=== PATIENT | male | born 1965 | race Caucasian/White ===

== ENCOUNTER 2021-06-30 13:31 | Inpatient (IN) | payer SELFPAY ==
[~2021-06-30] VITALS: Ht 182.9 cm; Wt 65.8 kg
[2021-06-30] MEDS ORDERED: SODIUM CHLORIDE 0.9% 1000ML 1,000 ML IV STA (13:53)
[2021-06-30] MEDS: SODIUM CHLORIDE 0.9% 1000ML 1,000 ML IV STA (14:10)
[2021-06-30] MEDS ORDERED: PROPOFOL IV EMULSION 10 MG/ML 20 ML VIAL ONE (14:13)
[2021-06-30] MEDS ORDERED: SEVOFLURANE INHAL SOLN 250 ML PEN BTL ONE (14:13)
[2021-06-30] MEDS ORDERED: LIDOCAINE HCL 2% LOCAL INJ 5 ML SDV VIAL INJ ONE (14:13)
[2021-06-30] MEDS ORDERED: POVIDONE IODINE 0.05% 0.05 % ML PO ONE (14:13)
[2021-06-30] MEDS ORDERED: ONDANSETRON HCL INJ 2MG/ML 2ML 2 MG/ML VIAL ONE (14:13)
[2021-06-30] MEDS ORDERED: PIPERACILLIN/TAZOBACTAM 3.375 GM in SODIUM CHLORIDE 0.9% 50ML 50 ML IV ONE (16:00)
[2021-06-30] MEDS ORDERED: INSULIN REGULAR, HUMAN 100 UNIT/1 ML IV ONE (16:00)
[2021-06-30] MEDS ORDERED: Vancomycin IV 1 GM in SODIUM CHLORIDE 0.9% 250ML 250 ML IV ONE (16:30)
[2021-06-30 19:56] VITALS: BP 165/86
[2021-06-30 20:29] VITALS: BP 165/86
[2021-06-30 21:00] VITALS: BP 165/86
[2021-06-30] MEDS: INSULIN LISPRO 100 UNIT/1 ML 3ML VIAL SQ SCH (21:37)
[2021-06-30] MEDS: PIPERACILLIN/TAZOBACTAM 3.375 GM in SODIUM CHLORIDE 0.9% 50ML 50 ML IV SCH (21:38)
[2021-07-01] VITALS (7 sets, daily range): BP systolic 124–141; BP diastolic 75–84
[2021-07-01] MEDS: MORPHINE SULFATE INJ 4 MG/ML INJ 1ML IV PRN ×3 (00:44→19:44)
[2021-07-01] MEDS: PIPERACILLIN/TAZOBACTAM 3.375 GM in SODIUM CHLORIDE 0.9% 50ML 50 ML IV SCH ×4 (04:10→22:08)
[2021-07-01 06:31] LABS: BASOPHILS # (AUTO) 0.1 (0.0-0.1); BASOPHILS % 0.3 % (0.0-1.0); EOSINOPHILS # (AUTO) 0.1 (0.0-0.4); EOSINOPHILS % 0.5 % (0.0-6.0); HEMATOCRIT 24.6 % (38.2-49.6); LYMPHOCYTES # (AUTO) 2.2 (1.0-3.2); LYMPHOCYTES % 12.1 % (18.0-39.1); MEAN CORPUSCULAR HEMOGLOBIN 30.2 pg (28-32); MEAN CORPUSCULAR HGB CONC 32.5 g/dL (31-35); MEAN CORPUSCULAR VOLUME 92.8 fL (81-99); MONOCYTES # (AUTO) 1.3 (0.2-0.8); NEUTROPHILS # (AUTO) 14.3 (2.1-6.9); NEUTROPHILS % 78.3 % (38.7-80.0); PLATELET COUNT 533 x10e3/uL (140-360); RED BLOOD COUNT 2.65 x10e6/uL (4.3-5.7); RED CELL DISTRIBUTION WIDTH 12.5 % (11.7-14.4)
[2021-07-01 07:01] LABS: ALBUMIN/GLOBULIN RATIO 0.5 (0.8-2.0); ANION GAP 13.1 mmol/L (8-16); CALCIUM 8.5 mg/dL (8.4-10.2); CREATININE, SERUM 0.84 mg/dL (0.72-1.25); POTASSIUM 4.1 mmol/L (3.5-5.1)
[2021-07-01] MEDS: SODIUM CHLORIDE 0.9% 1000ML 1,000 ML IV STA (09:09)
[2021-07-01] MEDS: INSULIN LISPRO 100 UNIT/1 ML 3ML VIAL SQ SCH ×4 (09:12→20:19)
[2021-07-01 10:29] LABS: CHOL/HDL RATIO 4.3 (3.9-4.7)
[2021-07-01] MEDS: ASPIRIN 325 MG TAB PO SCH (10:47)
[2021-07-01] MEDS: INSULIN REGULAR, HUMAN 100 UNIT/1 ML SQ SCH ×2 (12:39→17:00)
[2021-07-01] MEDS: CLINDAMYCIN 300MG 50 ML IV SCH ×2 (15:19→23:05)
[2021-07-01] MEDS: GLIMEPIRIDE 2 MG TAB PO SCH (17:02)
[2021-07-01] MEDS: METFORMIN HCL 500 MG TAB PO SCH (17:02)
[2021-07-01] MEDS: PRAVASTATIN 20 MG TAB PO SCH (20:19)
[2021-07-02] VITALS (9 sets, daily range): BP systolic 101–135; BP diastolic 66–83
[2021-07-02] MEDS: MORPHINE SULFATE INJ 4 MG/ML INJ 1ML IV PRN ×3 (04:05→21:12)
[2021-07-02] MEDS: PIPERACILLIN/TAZOBACTAM 3.375 GM in SODIUM CHLORIDE 0.9% 50ML 50 ML IV SCH ×4 (04:05→22:11)
[2021-07-02 05:40] LABS: BASOPHILS # (AUTO) 0.1 (0.0-0.1); BASOPHILS % 0.4 % (0.0-1.0); EOSINOPHILS # (AUTO) 0.1 (0.0-0.4); EOSINOPHILS % 0.6 % (0.0-6.0); HEMATOCRIT 25.5 % (38.2-49.6); HEMOGLOBIN 8.3 g/dL (14.0-18.0); LYMPHOCYTES % 10.6 % (18.0-39.1); MEAN CORPUSCULAR HEMOGLOBIN 30.4 pg (28-32); MEAN CORPUSCULAR HGB CONC 32.5 g/dL (31-35); MEAN CORPUSCULAR VOLUME 93.4 fL (81-99); MONOCYTES # (AUTO) 1.3 (0.2-0.8); MONOCYTES % 6.9 % (4.4-11.3); NEUTROPHILS % 80.1 % (38.7-80.0); PLATELET COUNT 516 x10e3/uL (140-360); RED BLOOD COUNT 2.73 x10e6/uL (4.3-5.7); RED CELL DISTRIBUTION WIDTH 12.6 % (11.7-14.4)
[2021-07-02 05:59] LABS: ANION GAP 11.7 mmol/L (8-16); CALCIUM 8.7 mg/dL (8.4-10.2); CREATININE, SERUM 0.97 mg/dL (0.72-1.25); POTASSIUM 3.7 mmol/L (3.5-5.1)
[2021-07-02] MEDS: CLINDAMYCIN 300MG 50 ML IV SCH ×3 (06:46→23:35)
[2021-07-02] MEDS: GLIMEPIRIDE 2 MG TAB PO SCH ×2 (07:59→16:29)
[2021-07-02] MEDS: METFORMIN HCL 500 MG TAB PO SCH ×2 (07:59→16:29)
[2021-07-02] MEDS: ASPIRIN 325 MG TAB PO SCH (07:59)
[2021-07-02] MEDS: INSULIN REGULAR, HUMAN 100 UNIT/1 ML SQ SCH ×3 (08:23→16:29)
[2021-07-02] MEDS: INSULIN LISPRO 100 UNIT/1 ML 3ML VIAL SQ SCH ×4 (08:23→21:10)
[2021-07-02] MEDS ORDERED: SEVOFLURANE INHAL SOLN 250 ML PEN BTL ONE (13:24)
[2021-07-02] MEDS ORDERED: POVIDONE IODINE 0.05% 0.05 % ML PO ONE (13:24)
[2021-07-02] MEDS ORDERED: ONDANSETRON HCL INJ 2MG/ML 2ML 2 MG/ML VIAL ONE (13:24)
[2021-07-02] MEDS ORDERED: LIDOCAINE HCL 2% LOCAL INJ 5 ML SDV VIAL INJ ONE (13:24)
[2021-07-02] MEDS ORDERED: PHENYLEPHRINE HCL 1% 10 MG/ML VIAL ONE (13:24)
[2021-07-02] MEDS ORDERED: PROPOFOL IV EMULSION 10 MG/ML 20 ML VIAL ONE (13:24)
[2021-07-02] MEDS ORDERED: FENTANYL CITRATE/PF 100MCG/2 ML INJ ONE (14:35)
[2021-07-02] MEDS ORDERED: MEPERIDINE HCL INJ 25 MG/ML VIAL ONE (14:36)
[2021-07-02] MEDS: SODIUM CHLORIDE 0.9% 1000ML 1,000 ML IV SCH (16:04)
[2021-07-02] MEDS ORDERED: SODIUM CHLORIDE 0.9% 250ML 250 ML IV ONE (18:30)
[2021-07-02] MEDS ORDERED: FUROSEMIDE INJ 10 MG/ML 2 ML VIAL IV PRN (18:30)
[2021-07-02 19:01] LABS: HEMOGLOBIN 7.2 g/dL (14.0-18.0)
[2021-07-02] MEDS: HYDROCODONE/APAP 7.5MG-325MG 1 EA TAB PO PRN (19:57)
[2021-07-02] MEDS: PRAVASTATIN 20 MG TAB PO SCH (21:10)
[2021-07-03] VITALS (9 sets, daily range): BP systolic 113–171; BP diastolic 72–93
[2021-07-03] MEDS ORDERED: SODIUM CHLORIDE 0.9% 250ML 250 ML ONE ×2 (00:18→04:23)
[2021-07-03] MEDS: HYDROCODONE/APAP 7.5MG-325MG 1 EA TAB PO PRN ×2 (01:08→14:07)
[2021-07-03] MEDS: SODIUM CHLORIDE 0.9% 1000ML 1,000 ML IV SCH ×3 (01:51→20:33)
[2021-07-03] MEDS: MORPHINE SULFATE INJ 4 MG/ML INJ 1ML IV PRN ×5 (02:12→20:44)
[2021-07-03] MEDS: PIPERACILLIN/TAZOBACTAM 3.375 GM in SODIUM CHLORIDE 0.9% 50ML 50 ML IV SCH ×4 (03:26→21:42)
[2021-07-03 07:35] LABS: BASOPHILS # (AUTO) 0.1 (0.0-0.1); BASOPHILS % 0.5 % (0.0-1.0); EOSINOPHILS # (AUTO) 0.1 (0.0-0.4); EOSINOPHILS % 0.8 % (0.0-6.0); HEMATOCRIT 26.7 % (38.2-49.6); HEMOGLOBIN 8.8 g/dL (14.0-18.0); LYMPHOCYTES # (AUTO) 1.7 (1.0-3.2); LYMPHOCYTES % 12.5 % (18.0-39.1); MEAN CORPUSCULAR HEMOGLOBIN 29.8 pg (28-32); MEAN CORPUSCULAR VOLUME 90.5 fL (81-99); MONOCYTES % 7.3 % (4.4-11.3); NEUTROPHILS # (AUTO) 10.3 (2.1-6.9); NEUTROPHILS % 77.8 % (38.7-80.0); PLATELET COUNT 407 x10e3/uL (140-360); RED BLOOD COUNT 2.95 x10e6/uL (4.3-5.7)
[2021-07-03 07:56] LABS: ANION GAP 12.2 mmol/L (8-16); CALCIUM 7.8 mg/dL (8.4-10.2); CREATININE, SERUM 0.93 mg/dL (0.72-1.25); POTASSIUM 4.2 mmol/L (3.5-5.1)
[2021-07-03] MEDS: METFORMIN HCL 500 MG TAB PO SCH ×2 (08:33→15:02)
[2021-07-03] MEDS: GLIMEPIRIDE 2 MG TAB PO SCH ×2 (08:33→15:02)
[2021-07-03] MEDS: CLINDAMYCIN 300MG 50 ML IV SCH ×3 (08:34→23:51)
[2021-07-03] MEDS: INSULIN LISPRO 100 UNIT/1 ML 3ML VIAL SQ SCH ×4 (08:38→20:32)
[2021-07-03] MEDS: INSULIN REGULAR, HUMAN 100 UNIT/1 ML SQ SCH ×3 (08:38→15:02)
[2021-07-03] MEDS: DEXTROSE 50% SYRINGE 50 ML IV PRN (15:04)
[2021-07-03] MEDS: PRAVASTATIN 20 MG TAB PO SCH (20:33)
[2021-07-04] VITALS (9 sets, daily range): BP systolic 135–159; BP diastolic 81–91
[2021-07-04] MEDS: PIPERACILLIN/TAZOBACTAM 3.375 GM in SODIUM CHLORIDE 0.9% 50ML 50 ML IV SCH ×5 (03:46→22:48)
[2021-07-04] MEDS: MORPHINE SULFATE INJ 4 MG/ML INJ 1ML IV PRN ×2 (03:52→09:15)
[2021-07-04] MEDS: SODIUM CHLORIDE 0.9% 1000ML 1,000 ML IV SCH ×2 (06:26→17:39)
[2021-07-04 06:44] LABS: BASOPHILS % 0.3 % (0.0-1.0); EOSINOPHILS # (AUTO) 0.1 (0.0-0.4); EOSINOPHILS % 1.1 % (0.0-6.0); HEMATOCRIT 25.9 % (38.2-49.6); HEMOGLOBIN 8.5 g/dL (14.0-18.0); LYMPHOCYTES # (AUTO) 1.9 (1.0-3.2); LYMPHOCYTES % 14.6 % (18.0-39.1); MEAN CORPUSCULAR HEMOGLOBIN 29.8 pg (28-32); MEAN CORPUSCULAR HGB CONC 32.8 g/dL (31-35); MEAN CORPUSCULAR VOLUME 90.9 fL (81-99); MONOCYTES # (AUTO) 0.9 (0.2-0.8); MONOCYTES % 6.5 % (4.4-11.3); NEUTROPHILS # (AUTO) 10.1 (2.1-6.9); NEUTROPHILS % 76.5 % (38.7-80.0); PLATELET COUNT 399 x10e3/uL (140-360); RED BLOOD COUNT 2.85 x10e6/uL (4.3-5.7); RED CELL DISTRIBUTION WIDTH 13.9 % (11.7-14.4)
[2021-07-04 07:16] LABS: ANION GAP 11.8 mmol/L (8-16); CREATININE, SERUM 0.89 mg/dL (0.72-1.25); POTASSIUM 3.8 mmol/L (3.5-5.1)
[2021-07-04] MEDS: INSULIN REGULAR, HUMAN 100 UNIT/1 ML SQ SCH ×3 (07:30→17:51)
[2021-07-04] MEDS: INSULIN LISPRO 100 UNIT/1 ML 3ML VIAL SQ SCH ×4 (07:30→21:00)
[2021-07-04] MEDS: METFORMIN HCL 500 MG TAB PO SCH ×2 (07:58→17:39)
[2021-07-04] MEDS: GLIMEPIRIDE 2 MG TAB PO SCH ×2 (07:59→17:39)
[2021-07-04] MEDS: CLINDAMYCIN 300MG 50 ML IV SCH (09:12)
[2021-07-04] MEDS ORDERED: ONDANSETRON HCL INJ 2MG/ML 2ML 2 MG/ML VIAL IV PRN (16:00)
[2021-07-04] MEDS ORDERED: KETOROLAC TROMETHAMINE 30 MG/ML VIAL IV PRN (16:00)
[2021-07-04] MEDS: HYDROMORPHONE 1MG/1ML INJ IV PRN ×2 (16:03→20:50)
[2021-07-04] MEDS ORDERED: FENTANYL CITRATE/PF 100MCG/2 ML INJ ONE (16:22)
[2021-07-04] MEDS ORDERED: KETOROLAC TROMETHAMINE 30 MG/ML VIAL ONE (16:43)
[2021-07-04] MEDS: PRAVASTATIN 20 MG TAB PO SCH (20:50)
[2021-07-05] VITALS (9 sets, daily range): BP systolic 121–168; BP diastolic 71–97
[2021-07-05] MEDS: HYDROMORPHONE 1MG/1ML INJ IV PRN ×5 (01:02→21:03)
[2021-07-05] MEDS: SODIUM CHLORIDE 0.9% 1000ML 1,000 ML IV SCH (02:13)
[2021-07-05] MEDS: PIPERACILLIN/TAZOBACTAM 3.375 GM in SODIUM CHLORIDE 0.9% 50ML 50 ML IV SCH ×4 (04:17→21:30)
[2021-07-05] MEDS: HYDROCODONE/APAP 7.5MG-325MG 1 EA TAB PO PRN (05:05)
[2021-07-05] MEDS: GLIMEPIRIDE 2 MG TAB PO SCH ×2 (08:44→15:23)
[2021-07-05] MEDS: METFORMIN HCL 500 MG TAB PO SCH ×2 (08:44→15:23)
[2021-07-05 08:49] LABS: BASOPHILS # (AUTO) 0.1 (0.0-0.1); BASOPHILS % 0.5 % (0.0-1.0); EOSINOPHILS # (AUTO) 0.1 (0.0-0.4); EOSINOPHILS % 0.8 % (0.0-6.0); HEMATOCRIT 24.1 % (38.2-49.6); HEMOGLOBIN 7.8 g/dL (14.0-18.0); LYMPHOCYTES # (AUTO) 1.4 (1.0-3.2); LYMPHOCYTES % 11.2 % (18.0-39.1); MEAN CORPUSCULAR HEMOGLOBIN 29.7 pg (28-32); MEAN CORPUSCULAR HGB CONC 32.4 g/dL (31-35); MEAN CORPUSCULAR VOLUME 91.6 fL (81-99); MONOCYTES # (AUTO) 0.7 (0.2-0.8); MONOCYTES % 5.7 % (4.4-11.3); NEUTROPHILS # (AUTO) 9.9 (2.1-6.9); PLATELET COUNT 431 x10e3/uL (140-360); RED BLOOD COUNT 2.63 x10e6/uL (4.3-5.7); RED CELL DISTRIBUTION WIDTH 13.5 % (11.7-14.4)
[2021-07-05] MEDS: INSULIN LISPRO 100 UNIT/1 ML 3ML VIAL SQ SCH ×4 (08:59→21:10)
[2021-07-05] MEDS: INSULIN REGULAR, HUMAN 100 UNIT/1 ML SQ SCH ×3 (09:00→15:23)
[2021-07-05 09:19] LABS: ANION GAP 9.9 mmol/L (8-16); CALCIUM 7.8 mg/dL (8.4-10.2); CREATININE, SERUM 0.78 mg/dL (0.72-1.25); POTASSIUM 3.9 mmol/L (3.5-5.1)
[2021-07-05] MEDS: DEXTROSE 50% SYRINGE 50 ML IV PRN (15:24)
[2021-07-05] MEDS: PRAVASTATIN 20 MG TAB PO SCH (21:09)
[2021-07-06] VITALS (8 sets, daily range): BP systolic 98–156; BP diastolic 64–96
[2021-07-06] MEDS: HYDROMORPHONE 1MG/1ML INJ IV PRN ×6 (00:54→21:14)
[2021-07-06] MEDS: HYDROCODONE/APAP 7.5MG-325MG 1 EA TAB PO PRN (02:44)
[2021-07-06] MEDS: PIPERACILLIN/TAZOBACTAM 3.375 GM in SODIUM CHLORIDE 0.9% 50ML 50 ML IV SCH ×4 (03:21→22:08)
[2021-07-06 06:29] LABS: BASOPHILS # (AUTO) 0.1 (0.0-0.1); BASOPHILS % 0.6 % (0.0-1.0); EOSINOPHILS # (AUTO) 0.1 (0.0-0.4); EOSINOPHILS % 1.3 % (0.0-6.0); HEMATOCRIT 23.3 % (38.2-49.6); HEMOGLOBIN 7.6 g/dL (14.0-18.0); LYMPHOCYTES # (AUTO) 1.4 (1.0-3.2); LYMPHOCYTES % 15.9 % (18.0-39.1); MEAN CORPUSCULAR HEMOGLOBIN 29.7 pg (28-32); MEAN CORPUSCULAR HGB CONC 32.6 g/dL (31-35); MONOCYTES # (AUTO) 0.8 (0.2-0.8); MONOCYTES % 8.4 % (4.4-11.3); NEUTROPHILS # (AUTO) 6.6 (2.1-6.9); NEUTROPHILS % 73.2 % (38.7-80.0); PLATELET COUNT 445 x10e3/uL (140-360); RED BLOOD COUNT 2.56 x10e6/uL (4.3-5.7); RED CELL DISTRIBUTION WIDTH 13.1 % (11.7-14.4)
[2021-07-06 06:44] LABS: ANION GAP 12.9 mmol/L (8-16); CALCIUM 7.8 mg/dL (8.4-10.2); CREATININE, SERUM 0.94 mg/dL (0.72-1.25); POTASSIUM 3.9 mmol/L (3.5-5.1)
[2021-07-06] MEDS: INSULIN LISPRO 100 UNIT/1 ML 3ML VIAL SQ SCH ×4 (08:50→21:25)
[2021-07-06] MEDS: PRAVASTATIN 20 MG TAB PO SCH (21:17)
[2021-07-07] VITALS (8 sets, daily range): BP systolic 120–145; BP diastolic 73–90
[2021-07-07] MEDS: HYDROMORPHONE 1MG/1ML INJ IV PRN ×6 (00:48→21:05)
[2021-07-07] MEDS: PIPERACILLIN/TAZOBACTAM 3.375 GM in SODIUM CHLORIDE 0.9% 50ML 50 ML IV SCH ×3 (03:15→17:11)
[2021-07-07 05:39] LABS: BASOPHILS # (AUTO) 0.1 (0.0-0.1); BASOPHILS % 0.6 % (0.0-1.0); EOSINOPHILS # (AUTO) 0.2 (0.0-0.4); EOSINOPHILS % 1.9 % (0.0-6.0); HEMATOCRIT 24.1 % (38.2-49.6); HEMOGLOBIN 7.9 g/dL (14.0-18.0); LYMPHOCYTES % 20.8 % (18.0-39.1); MEAN CORPUSCULAR HEMOGLOBIN 29.4 pg (28-32); MEAN CORPUSCULAR HGB CONC 32.8 g/dL (31-35); MEAN CORPUSCULAR VOLUME 89.6 fL (81-99); MONOCYTES # (AUTO) 0.7 (0.2-0.8); MONOCYTES % 7.4 % (4.4-11.3); NEUTROPHILS # (AUTO) 6.6 (2.1-6.9); NEUTROPHILS % 68.9 % (38.7-80.0); PLATELET COUNT 449 x10e3/uL (140-360); RED BLOOD COUNT 2.69 x10e6/uL (4.3-5.7); RED CELL DISTRIBUTION WIDTH 13.1 % (11.7-14.4)
[2021-07-07 06:01] LABS: ANION GAP 12.2 mmol/L (8-16); CALCIUM 8.3 mg/dL (8.4-10.2); CREATININE, SERUM 0.83 mg/dL (0.72-1.25); POTASSIUM 4.2 mmol/L (3.5-5.1)
[2021-07-07] MEDS: INSULIN LISPRO 100 UNIT/1 ML 3ML VIAL SQ SCH ×4 (11:11→21:04)
[2021-07-07] MEDS: PRAVASTATIN 20 MG TAB PO SCH (21:05)
[2021-07-07] MEDS: HYDROCODONE/APAP 7.5MG-325MG 1 EA TAB PO PRN (23:31)
[2021-07-08] VITALS (8 sets, daily range): BP systolic 106–138; BP diastolic 70–86
[2021-07-08] MEDS: PIPERACILLIN/TAZOBACTAM 3.375 GM in SODIUM CHLORIDE 0.9% 50ML 50 ML IV SCH ×4 (00:03→16:29)
[2021-07-08] MEDS: HYDROMORPHONE 1MG/1ML INJ IV PRN ×4 (02:11→18:10)
[2021-07-08] MEDS: HYDROCODONE/APAP 7.5MG-325MG 1 EA TAB PO PRN ×4 (04:18→21:12)
[2021-07-08 05:41] LABS: BASOPHILS # (AUTO) 0.1 (0.0-0.1); BASOPHILS % 0.7 % (0.0-1.0); EOSINOPHILS # (AUTO) 0.2 (0.0-0.4); EOSINOPHILS % 2.8 % (0.0-6.0); HEMATOCRIT 24.7 % (38.2-49.6); HEMOGLOBIN 8.1 g/dL (14.0-18.0); LYMPHOCYTES # (AUTO) 1.8 (1.0-3.2); LYMPHOCYTES % 25.4 % (18.0-39.1); MEAN CORPUSCULAR HEMOGLOBIN 29.6 pg (28-32); MEAN CORPUSCULAR HGB CONC 32.8 g/dL (31-35); MEAN CORPUSCULAR VOLUME 90.1 fL (81-99); MONOCYTES # (AUTO) 0.6 (0.2-0.8); MONOCYTES % 7.8 % (4.4-11.3); NEUTROPHILS # (AUTO) 4.4 (2.1-6.9); NEUTROPHILS % 62.9 % (38.7-80.0); PLATELET COUNT 409 x10e3/uL (140-360); RED BLOOD COUNT 2.74 x10e6/uL (4.3-5.7); RED CELL DISTRIBUTION WIDTH 13.1 % (11.7-14.4)
[2021-07-08 05:57] LABS: ANION GAP 12.2 mmol/L (8-16); CALCIUM 8.3 mg/dL (8.4-10.2); CREATININE, SERUM 0.83 mg/dL (0.72-1.25); POTASSIUM 4.2 mmol/L (3.5-5.1)
[2021-07-08] MEDS: INSULIN LISPRO 100 UNIT/1 ML 3ML VIAL SQ SCH ×4 (07:52→21:13)
[2021-07-08] MEDS ORDERED: SODIUM CHLORIDE 0.9% 50ML 50 ML ONE (11:00)
[2021-07-08] MEDS: PRAVASTATIN 20 MG TAB PO SCH (21:12)
[2021-07-09] VITALS (8 sets, daily range): BP systolic 111–135; BP diastolic 66–91
[2021-07-09] MEDS: HYDROMORPHONE 1MG/1ML INJ IV PRN ×2 (00:09→06:12)
[2021-07-09] MEDS: PIPERACILLIN/TAZOBACTAM 3.375 GM in SODIUM CHLORIDE 0.9% 50ML 50 ML IV SCH ×5 (00:35→22:07)
[2021-07-09] MEDS: HYDROCODONE/APAP 7.5MG-325MG 1 EA TAB PO PRN ×2 (03:57→08:13)
[2021-07-09] MEDS: INSULIN LISPRO 100 UNIT/1 ML 3ML VIAL SQ SCH ×4 (08:13→22:08)
[2021-07-09] MEDS: ACETAMINOPHEN/CODEINE 300MG - 30MG TAB PO PRN ×2 (10:48→14:59)
[2021-07-09] MEDS: TRAMADOL HCL 50 MG TAB PO SCH ×3 (12:17→23:47)
[2021-07-09] MEDS: CYCLOBENZAPRINE HCL 10 MG TAB PO SCH ×2 (14:59→22:07)
[2021-07-09] MEDS: GABAPENTIN 100 MG CAP PO SCH ×2 (14:59→22:07)
[2021-07-09] MEDS: DULOXETINE HCL 30 MG DELAYED RELEASE PO SCH (22:06)
[2021-07-09] MEDS: PRAVASTATIN 20 MG TAB PO SCH (22:06)
[2021-07-09] MEDS: ACETAMINOPHEN 325 MG TAB PO SCH (22:06)
[2021-07-10] VITALS: BP 113/69
[2021-07-10 04:00] VITALS: BP 143/87
[2021-07-10] MEDS: PIPERACILLIN/TAZOBACTAM 3.375 GM in SODIUM CHLORIDE 0.9% 50ML 50 ML IV SCH ×3 (05:50→15:57)
[2021-07-10] MEDS: TRAMADOL HCL 50 MG TAB PO SCH ×3 (05:51→18:10)
[2021-07-10] MEDS: GABAPENTIN 100 MG CAP PO SCH ×2 (05:51→14:23)
[2021-07-10] MEDS: CYCLOBENZAPRINE HCL 10 MG TAB PO SCH ×2 (05:52→14:23)
[2021-07-10 08:25] VITALS: BP 138/84
[2021-07-10] MEDS: DULOXETINE HCL 30 MG DELAYED RELEASE PO SCH (08:53)
[2021-07-10] MEDS: ACETAMINOPHEN 325 MG TAB PO SCH (08:53)
[2021-07-10] MEDS: INSULIN LISPRO 100 UNIT/1 ML 3ML VIAL SQ SCH ×3 (08:56→16:02)
[2021-07-10 12:01] VITALS: BP 126/85
[2021-07-10] MEDS ORDERED: SODIUM CHLORIDE 0.9% 250ML 250 ML ONE (16:10)
[2021-07-10 16:48] VITALS: BP 128/82
[2021-07-10 18:49] VITALS: BP 128/82
[2021-07-10] MEDS ORDERED: ACETAMINOPHEN650 M1 PO (21:16)
[2021-07-10] MEDS ORDERED: GABAPENTIN100 MG PO (21:16)
[2021-07-10] MEDS ORDERED: PRAVASTATIN SOD20 MG PO (21:16)
[2021-07-10] MEDS ORDERED: CYMBALTA30 MG PO (21:16)
== END 2021-07-10 18:35 | disposition home or self-care (01) | DRG 854 ==
LOC: FSED 13:40 → ERHOLD 15:45 → MED/SURG3 19:24
PROVIDERS: ADMIT Internal Medicine; ATTEND Internal Medicine
PROC: 0Y6N0Z0 Detachment at Left Foot, Complete, Open Approach (ICD-10-PCS; principal; 2021-07-02 11:30)
PROC: 0Y6J0Z2 Detachment at Left Lower Leg, Mid, Open Approach (ICD-10-PCS; 2021-07-04)
DX: A41.9 Sepsis, unspecified organism (principal); M86.8X7 Other osteomyelitis, ankle and foot; E11.52 Type 2 diabetes mellitus with diabetic peripheral angiopathy with gangrene; I96 Gangrene, not elsewhere classified; L97.422 Non-pressure chronic ulcer of left heel and midfoot with fat layer exposed; E11.621 Type 2 diabetes mellitus with foot ulcer; E78.5 Hyperlipidemia, unspecified; B96.20 Unspecified Escherichia coli [E. coli] as the cause of diseases classified elsewhere; B95.1 Streptococcus, group B, as the cause of diseases classified elsewhere; Z20.822 Contact with and (suspected) exposure to COVID-19; E11.65 Type 2 diabetes mellitus with hyperglycemia; E11.649 Type 2 diabetes mellitus with hypoglycemia without coma
CPT/HCPCS: 36415; 80048; 80053; 80061; 82948; 83036; 83605; 85014; 85018; 85025; 86850; 86900; 86920; 87040; 87071; 87186; 87205; 88307; 88311; 93925; 93926; 96360; 97139; 99251; 99284; J1170; J1885; J2001; J2175; J2270; J2370; J2405; J2543; J3010; J7030; J7050; J7799; P9016; U0002